=== PATIENT | male | born 1955 | race Caucasian/White ===

== ENCOUNTER 2019-05-15 13:50 | Emergency (ER) | payer BC ==
[2019-05-15] MEDS ORDERED: NORMAL SALINE 500 ML IV ONE (14:16)
--- NOTE | 2019-05-15 14:20 | ER Document Report ---
ED General - General Chief Complaint: Difficulty Swallowing Stated Complaint: FOOD STUCK IN ESOPHOGUS Notes: 63-year-old male presents with epigastric and chest discomfort "I got food stuck" he says he has achalasia, had a dilation 20 years ago and has not had a GI doctor visit since. Not on PPI. Over last 4 months is had progressive dysphagia for solids but no obstruction. This morning had a piece of ham for breakfast and felt like it got stuck. Was unable to eat or drink after that. Feels better now in terms of discomfort but is still unable to drink anything because vomits every single time. Feels faint and dehydrated. No neck pain or clavicular discomfort. Past Medical History - Social History Smoking Status: Never Smoker Family History: None Review of Systems - Review of Systems Notes: REVIEW OF SYSTEMS GEN: Denies fever, chills, weight loss ENT: Denies sore throat, nasal discharge, ear pain EYES: Denies blurry vision, eye pain, discharge CV: Chest discomfort RESP: Denies cough, shortness of breath, wheezing GI: Vomiting MSK: Denies joint pain/swelling, edema, SKIN: Denies rash, skin lesions LYMPH: Denies swollen glands/lymph nodes NEURO: Denies headache, focal weakness or numbness, dizziness PSYCH: Denies depression, suicidal or homicidal ideation PHYSICAL EXAMINATION General: No acute distress, well-nourished Head: Atraumatic, normocephalic ENT: Mouth normal, oropharynx moist, no exudates or tonsillar enlargement Eyes: Conjunctiva normal, pupils equal, lids normal Neck: No JVD, supple, no guarding CVS: Normal rate, regular rhythm, no murmurs Resp: No resp distress, equal and normal breath sounds bilaterally GI: Nondistended, soft, no tenderness to palpation, no rebound or guarding Ext: No deformities, no edema, normal range of motion in upper and lower ext Back: No CVA or midline TTP Skin: No rash, warm Lymphatic: No lymphadeopathy noted Neuro: Awake, alert. Face symmetric. GCS 15. Physical Exam - Vital signs Vitals: Temp Pulse Resp BP Pulse Ox 97.5 F 81 16 147/85 H 99 05/15/19 13:56 05/15/19 13:56 05/15/19 13:56 05/15/19 13:56 05/15/19 13:56 Course - Re-evaluation Re-evalutation: 05/15/19 15:21 Patient presents with partial esophageal obstruction. Not actively vomiting but unable to tolerate p.o. I gave him water he swallowed it and within 5 seconds vomited back up. He looks like dehydrated. Will place IV, try glucagon and Zofran given fluids. We discussed at length the fact that I do not have GI. I asked Dr. Mace from surgery to scope the patient he says he does not do interv entional scoping. I discussed with the transfer center at [facility] at approximately 2:45 PM and they will be calling me back with a hospitalist. 05/15/19 15:38 Patient awaiting transfer call from [facility]. They are now desiring to leave and drive to a different hospital. I did discuss with him the risks of this although the patient has been stable since 8 this morning and at most has mild h ydration should do fine during transport. I did explain to them that if they are going to a different emergency department, that they should probably choose one that may have GI and I gave them a possible list of choices. I have discussed with the patient there likely diagnosis, aftercare plan, follow-up plans and my usual and customary return precautions. They verbalized understanding of this. 05/15/19 15:[address] Santiago stating that there may not be any beds. The patient is tired of waiting. He did vomit after fluids, but is wanting to leave here. I did give him a list of ED is that he could go to and he is probably going to choose [facility]. - Vital Signs Vital signs: Temp Pulse Resp BP Pulse Ox 97.5 F 81 16 147/85 H 99 05/15/19 13:56 05/15/19 13:56 05/15/19 13:56 05/15/19 13:56 05/15/19 13:56 Discharge - Discharge Clinical Impression: Esophageal obstruction Condition: Good Disposition: AGAINST MEDICAL ADVICE
[2019-05-15] MEDS ORDERED: NORMAL SALINE 1000 ML 1,000 ML IV ONE (15:04)
[2019-05-15 20:56] VITALS: BP 148/81
== END 2019-05-15 16:07 | disposition left against medical advice (07) ==
LOC: ER 13:50
DX: K22.2 Esophageal obstruction (principal); R11.10 Vomiting, unspecified; R09.89 Other specified symptoms and signs involving the circulatory and respiratory systems; R19.8 Other specified symptoms and signs involving the digestive system and abdomen; Z53.29 Procedure and treatment not carried out because of patient's decision for other reasons
CPT/HCPCS: 96360; 99283; J7030